=== PATIENT | female | born 1950 | race Caucasian/White ===

== ENCOUNTER → 2017-04-28 | Outpatient (CLI) | payer MEDICARE ==
[~2017-04-28] MED LIST: ACETADRYL 500-1 EACH PO; CHOL10002; Calcium Ascorb500 MG; Fruity C250 MG; HYDR1TAB94 PO; Hair, Skin & N1 EACH; METF500 PO; METF500C PO; MULVITMIND PO; Zestril40 MG PO
[2017-04-29 14:36] LABS: Stool Occult Bld Immuno 1 Negative (NEGATIVE)
== END | disposition home or self-care (01) ==
LOC: LAB EV 01:46
PROVIDERS: Nurse Practitioner
DX: D50.9 Iron deficiency anemia, unspecified (principal); M25.50 Pain in unspecified joint
CPT/HCPCS: G0328

== ENCOUNTER 2017-10-24 07:08 | Day surgery (SDC) | payer MEDICARE, OTHER ==
[~2017-10-24] VITALS: Ht 157.5 cm; Wt 79.5 kg
[~2017-10-24 07:08] MED LIST changes: -CHOL10002; -Calcium Ascorb500 MG; -Fruity C250 MG; -Hair, Skin & N1 EACH
[2017-10-24] MEDS ORDERED: Fruity C250 MG (08:00)
[2017-10-24] MEDS ORDERED: CHOL10002 (08:00)
[2017-10-24] MEDS ORDERED: Calcium Ascorb500 MG (08:00)
[2017-10-24] MEDS ORDERED: Hair, Skin & N1 EACH (08:01)
== END 2017-10-24 10:00 | disposition home or self-care (01) ==
LOC: ORSCSDS 07:08
PROVIDERS: Internal Medicine Gastroenterology
PROC: 0DJD8ZZ Inspection of Lower Intestinal Tract, Via Natural or Artificial Opening Endoscopic (ICD-10-PCS; principal; 2017-10-24 08:45)
DX: D50.9 Iron deficiency anemia, unspecified (principal); Z86.010 Personal history of colon polyps; E11.9 Type 2 diabetes mellitus without complications; I10 Essential (primary) hypertension; E78.5 Hyperlipidemia, unspecified; Z98.84 Bariatric surgery status; Z79.84 Long term (current) use of oral hypoglycemic drugs; Z79.899 Other long term (current) drug therapy
CPT/HCPCS: 82947; J7120

== ENCOUNTER 2017-11-23 10:15 | Day surgery (SDC) | payer MEDICARE, OTHER ==
[~2017-11-23] VITALS: Ht 157.5 cm; Wt 81.7 kg
[~2017-11-23 10:15] MED LIST changes: +CHOL10002; +Calcium Ascorb500 MG; +Fruity C250 MG; +Hair, Skin & N1 EACH
== END 2017-11-23 13:00 | disposition home or self-care (01) ==
LOC: ORSCSDS 10:15
PROVIDERS: Internal Medicine Gastroenterology
PROC: 0DB68ZX Excision of Stomach, Via Natural or Artificial Opening Endoscopic, Diagnostic (ICD-10-PCS; principal; 2017-11-23 11:30)
PROC: 0DBA8ZX Excision of Jejunum, Via Natural or Artificial Opening Endoscopic, Diagnostic (ICD-10-PCS; principal; 2017-11-23 11:30)
DX: D50.9 Iron deficiency anemia, unspecified (principal); E11.9 Type 2 diabetes mellitus without complications; I10 Essential (primary) hypertension; E78.5 Hyperlipidemia, unspecified; Z98.84 Bariatric surgery status; Z79.84 Long term (current) use of oral hypoglycemic drugs; Z79.899 Other long term (current) drug therapy
CPT/HCPCS: 82947; 88305; 88342; J7120

== ENCOUNTER → 2021-08-04 | Outpatient (CLI) | payer MEDICARE, OTHER ==
[~2021-08-04] MED LIST changes: +HYDCHL12.5 PO; +ZESTRIL40 M1 PO; -Zestril40 MG PO
== END | disposition home or self-care (01) ==
LOC: LAB 07:41 → LAB SHORT 07:41 → PLD 07:41
DX: L90.0 Lichen sclerosus et atrophicus (principal)
CPT/HCPCS: 88305

== ENCOUNTER → 2023-01-09 | Outpatient (CLI) | payer MEDICARE, OTHER | END | disposition home or self-care (01) | LOC: LAB SHORT 13:49 → PLD 13:49 | DX: L82.1 Other seborrheic keratosis (principal) | CPT/HCPCS: 88305 ==

== ENCOUNTER 2023-02-16 07:20 | Day surgery (SDC) | payer MEDICARE, OTHER ==
[~2023-02-16] VITALS: Ht 157.5 cm; Wt 73.3 kg
[2023-02-16] MEDS ORDERED: KETO15TC (08:23)
[2023-02-16] MEDS ORDERED: NYSTRIT (08:23)
[2023-02-16] MEDS ORDERED: PIOGLITAZONE (08:23)
[2023-02-16] MEDS ORDERED: JARDIANCE10 MG (08:23)
[2023-02-16] MEDS ORDERED: NIFE10 (08:23)
[2023-02-16] MEDS ORDERED: CLOBETASOL EMOL15 G1 (08:24)
[2023-02-16] MEDS ORDERED: Vitamin C100 M1 (08:25)
[2023-02-16] MEDS ORDERED: Vitamin B Comple1 EA (08:25)
[2023-02-16] MEDS ORDERED: ERGO400 (08:25)
[2023-02-16] MEDS ORDERED: Calcium Acetat667 MG (08:25)
[2023-02-16] MEDS ORDERED: ZINC15 (08:25)
[2023-02-16] MEDS ORDERED: MULTI-VITAMIN1 EAC2 (08:25)
[2023-02-16] MEDS ORDERED: ACET80 (08:26)
[2023-02-16 09:03] VITALS: BP 113/68
== END 2023-02-16 09:12 | disposition home or self-care (01) ==
LOC: ORSCSDS 07:20
PROVIDERS: Internal Medicine Gastroenterology
PROC: 0DJ08ZZ Inspection of Upper Intestinal Tract, Via Natural or Artificial Opening Endoscopic (ICD-10-PCS; principal; 2023-02-16 08:45)
DX: K74.60 Unspecified cirrhosis of liver (principal); Z98.84 Bariatric surgery status; E11.9 Type 2 diabetes mellitus without complications; E78.5 Hyperlipidemia, unspecified; D64.9 Anemia, unspecified; E88.09 Other disorders of plasma-protein metabolism, not elsewhere classified; Z79.899 Other long term (current) drug therapy
CPT/HCPCS: 82947; J2704; J7120

== ENCOUNTER 2023-04-05 11:22 | Day surgery (SDC) | payer MEDICARE, OTHER ==
[~2023-04-05] VITALS: Ht 157.5 cm; Wt 77.2 kg
[~2023-04-05 11:22] MED LIST changes: +ACET80; +CLOBETASOL EMOL15 G1; +Calcium Acetat667 MG; +ERGO400; +JARDIANCE25 MG PO; +KETO15TC; +MULTI-VITAMIN1 EAC2; +NYSTRIT; +PIOGLITAZONE; +PROCARDIA PO; +Vitamin B Comple1 EA; +Vitamin C100 M1; +ZINC15
[2023-04-05] MEDS ORDERED: JARDIANCE25 MG (12:02)
[2023-04-05] MEDS ORDERED: PIOG15 (12:03)
[2023-04-05] MEDS ORDERED: ADALAT CC30 M1 (12:03)
[2023-04-05] MEDS ORDERED: KETO15TC (12:04)
[2023-04-05] MEDS ORDERED: NYSTATIN POWDER (12:04)
[2023-04-05] MEDS ORDERED: NYSTATIN CREAM (12:05)
[2023-04-05] MEDS ORDERED: ERGO400 (12:05)
[2023-04-05] MEDS ORDERED: CLOBETASOL EMOL15 G1 (12:05)
[2023-04-05] MEDS ORDERED: ACET500 (12:06)
--- NOTE | 2023-04-05 12:26 | NUR ---
04/05/23 1226 Nadine Rios PROPARACAINE PLACED IN LEFT EYE AT 1210. PLEDGET PLACED IN LEFT EYE AT 1211. PATIENT TOLERATED WELL.
[2023-04-05 13:23] VITALS: BP 153/91
--- NOTE | 2023-04-05 16:13 | NUR ---
04/05/23 1612 Driss Perez IV REMOVED INTACT. SITE WNL.
== END 2023-04-05 13:51 | disposition home or self-care (01) ==
LOC: ORSCSDS 11:22
PROVIDERS: Ophthalmology
PROC: 08RK3JZ Replacement of Left Lens with Synthetic Substitute, Percutaneous Approach (ICD-10-PCS; principal; 2023-04-05 13:00)
DX: E11.36 Type 2 diabetes mellitus with diabetic cataract (principal); H25.13 Age-related nuclear cataract, bilateral; I10 Essential (primary) hypertension; K74.60 Unspecified cirrhosis of liver; Z79.84 Long term (current) use of oral hypoglycemic drugs; Z79.899 Other long term (current) drug therapy
CPT/HCPCS: 82947; J2001; J2250; J3010; J3301; J7040; V2632

== ENCOUNTER 2023-04-12 11:32 | Day surgery (SDC) | payer MEDICARE, OTHER ==
[~2023-04-12] VITALS: Ht 157.5 cm; Wt 76.7 kg
[~2023-04-12 11:32] MED LIST changes: +ACET500; +ADALAT CC30 M1; +JARDIANCE25 MG; +NYSTATIN CREAM; +NYSTATIN POWDER; +PIOG15
--- NOTE | 2023-04-12 12:00 | NUR ---
04/12/23 1200 Yamini Freedman AT 1158 PLEDGET AT 1156
[2023-04-12 13:25] VITALS: BP 123/67
== END 2023-04-12 13:45 | disposition home or self-care (01) ==
LOC: ORSCSDS 11:32
PROVIDERS: Ophthalmology
PROC: 08RJ3JZ Replacement of Right Lens with Synthetic Substitute, Percutaneous Approach (ICD-10-PCS; principal; 2023-04-12 13:00)
DX: H25.11 Age-related nuclear cataract, right eye (principal); Z96.1 Presence of intraocular lens; I10 Essential (primary) hypertension; K74.60 Unspecified cirrhosis of liver; Z79.84 Long term (current) use of oral hypoglycemic drugs; Z79.899 Other long term (current) drug therapy
CPT/HCPCS: 82947; J2001; J2250; J3010; J3301; J7040; V2632

== ENCOUNTER 2023-11-03 11:03 | Day surgery (SDC) | payer MEDICARE, OTHER ==
[~2023-11-03] VITALS: Ht 152.4 cm; Wt 77.8 kg
[~2023-11-03 11:03] MED LIST changes: +Lactated Ringer's 1,000 ML IV ONE; +propofoL 50 ML IV ONE
[2023-11-03] MEDS ORDERED: CALCIUM 600 +1 EA11 (12:14)
[2023-11-03] MEDS ORDERED: TURMERIC CURCU1 EACH (12:21)
[2023-11-03] MEDS ORDERED: Lactated Ringer's 1,000 ML IV ONE (12:53)
[2023-11-03 14:03] VITALS: BP 126/61
== END 2023-11-03 14:05 | disposition home or self-care (01) ==
LOC: ORSCSDS 11:03
PROVIDERS: Internal Medicine Gastroenterology
PROC: 0DJD8ZZ Inspection of Lower Intestinal Tract, Via Natural or Artificial Opening Endoscopic (ICD-10-PCS; principal; 2023-11-03 12:15)
DX: Z12.11 Encounter for screening for malignant neoplasm of colon (principal); Z86.010 Personal history of colon polyps; I10 Essential (primary) hypertension; E11.9 Type 2 diabetes mellitus without complications; E78.5 Hyperlipidemia, unspecified; Z79.84 Long term (current) use of oral hypoglycemic drugs; Z79.85 Long-term (current) use of injectable non-insulin antidiabetic drugs; Z79.899 Other long term (current) drug therapy
CPT/HCPCS: 82947; J2704; J7120

== ENCOUNTER → 2024-02-27 | Outpatient (CLI) | payer MEDICARE, OTHER ==
[~2024-02-27] MED LIST changes: +CALCIUM 600 +1 EA11; -Lactated Ringer's 1,000 ML IV ONE; +TURMERIC CURCU1 EACH; -propofoL 50 ML IV ONE
[2024-02-28 11:44] LABS: Percent Saturation 24.1 % (15.0-50.0)
== END ==
LOC: LAB 10:32 → LAB SHORT 10:32
PROVIDERS: Internal Medicine Hematology & Oncology
DX: D53.9 Nutritional anemia, unspecified (principal); E61.1 Iron deficiency
CPT/HCPCS: 82607; 82728; 82746; 83540; 83550

== ENCOUNTER 2025-03-18 08:43 | Day surgery (SDC) | payer MEDICARE, OTHER ==
[2025-03-18] VITALS (14 sets, daily range): BP systolic 119–167; BP diastolic 56–70
[~2025-03-18] VITALS: Ht 157.5 cm; Wt 86.3 kg
[~2025-03-18 08:43] MED LIST changes: +ACET500 PO; +Calcium Carbon500 MG PO; +Crestor40 MG PO; +LISI20 PO; +MAGNESIUM PO; +MULVITA PO; +NIFE30ER PO; +NYSTATIN15 GM TOP; +PIOG30 PO; +POTCHL20ER PO; +TURMERIC ROOT5000 GM PO; +VITAMIN D310 MC5 PO; +ZINC CITRATE PO
[2025-03-18] MEDS ORDERED: Chlorhexidine Mouth Care 15 ML UDC MT SCH (09:45)
[2025-03-18] MEDS ORDERED: Ropivacaine 0.5% HCl/Pf 123.125 MG,EPINEPHrine HCL 0.25 MG,Ketorolac Tromethamine 15 MG... INFIL SCH (09:45)
[2025-03-18] MEDS ORDERED: CeFAZolin Sodium 2,000 MG in NS 100 ML IV SCH ×2 (09:45→19:30)
[2025-03-18] MEDS ORDERED: Tranexamic Acid 100 ML IV SCH (09:45)
[2025-03-18] MEDS ORDERED: Metoclopramide HCl 5MG / ML 2ML Vial IV PRN ×2 (10:35→12:05)
[2025-03-18] MEDS ORDERED: Magnesium Hydroxide Conc 10 ML UDC PO PRN (10:35)
[2025-03-18] MEDS ORDERED: HYDROmorphone HCl/Pf 1MG SYR IV PRN ×3 (10:40→12:05)
[2025-03-18] MEDS ORDERED: Ondansetron HCl 2 MG / ML 2ML Vial IV PRN (10:45)
[2025-03-18] MEDS ORDERED: Midazolam HCl 1MG / ML 2ML Vial ONE (11:15)
[2025-03-18] MEDS ORDERED: FLU VACC TS2025(65UP)/MF59C/PF 45 MCG/0.5 ML SYRINGE IM SCH (11:25)
[2025-03-18] MEDS ORDERED: Insulin Regular 100 UNIT/ML 10ML Vial SC SCH (11:30)
[2025-03-18] MEDS ORDERED: FentaNYL Citrate 50 MCG/ML 2 ML Injection ONE (11:42)
[2025-03-18] MEDS ORDERED: Dexamethasone Sod Phos 10 MG/ML 1ML VIAL ONE (11:55)
[2025-03-18] MEDS ORDERED: HYDROmorphone HCl/Pf 1MG SYR ONE (11:55)
[2025-03-18] MEDS ORDERED: Ondansetron HCl 2 MG / ML 2ML Vial ONE (11:55)
[2025-03-18] MEDS ORDERED: FentaNYL Citrate 50 MCG/ML 2 ML Injection IV PRN ×2 (12:05→12:10)
--- NOTE | 2025-03-18 13:55 | NUR ---
POST OP ARRIVAL TO SURGICAL UNIT ORIENTED, & PLEASANT BUT DROWSY. CLOSES EYES & DRIFTS MIDSENTENCE. ASSESSMENT CHARTED. DENIES PAIN. DENIES N/V SO SNACKS & DRINKS GIVEN BUT NOT MUCH INTEREST. CRYOTHERAPY, TEDS, SCDs IN PLACE.
[2025-03-18] MEDS ORDERED: ASPI81CH PO (16:01)
--- NOTE | 2025-03-18 18:00 | NUR ---
UPDATE STILL UNABLE TO LIFT SURGICAL LEG. & UNABLE TO FEEL SURGICAL LEG SCD BUT CAN FEEL OPPOSITE LEG SCD & LIFT ANKLE BUT NOT THIGH.
[2025-03-19 00:05] VITALS: BP 129/65
[2025-03-19 04:52] VITALS: BP 162/66
[2025-03-19 04:57] LABS: BASOPHILS ABSOLUTE AUTO 0.01 K/mm3 (0.00-0.23); BASOPHILS PERCENT AUTO 0 % (0-2); EOSINOPHILS ABSOLUTE AUTO 0.03 K/mm3 (0.00-0.68); EOSINOPHILS PERCENT AUTO 0 % (0-6); Hematocrit 36.1 % (33.0-51.0); Hemoglobin 11.8 g/dL (11.5-16.0); IMMATURE GRAN ABSOLUTE AUTO 0.03 K/mm3 (0.00-0.10); IMMATURE GRAN PERCENT AUTO 0 % (0-1); LYMPHOCYTES ABSOLUTE AUTO 1.60 K/mm3 (0.84-5.20); LYMPHOCYTES PERCENT AUTO 17 % (21-46); MONOCYTES ABSOLUTE AUTO 0.83 K/mm3 (0.16-1.47); MONOCYTES PERCENT AUTO 9 % (4-13); Mean Corpuscular HGB Conc 32.7 g/dL (31.5-36.5); Mean Corpuscular Volume 98 fL (80-100); NEUTROPHILS ABSOLUTE AUTO 6.76 K/mm3 (1.96-9.15); NEUTROPHILS PERCENT AUTO 73 % (41-73); NRBC ABSOLUTE 0.00 K/mm3 (0.00-0.02); NRBC Auto 0.0 /100 WBC (0.0-0.2); Platelet Count 145 K/mm3 (150-400); RDW Coefficient Variation 12.4 % (11.7-14.2); RDW Standard Deviation 44.9 fL (35.1-46.3)
[2025-03-19 05:11] LABS: Anion Gap 10.0 mmol/L (3-11); Blood Urea Nitrogen 20.0 mg/dL (8-24); CO2, Blood 25.0 mmol/L (21-32); Calcium, Blood 8.1 mg/dL (8.5-10.1); Chloride, Blood 106.0 mmol/L (98-108); Creatinine, Blood 0.55 mg/dL (0.40-1.00); Glucose, Blood 109.0 mg/dL (70-99); Potassium, Blood 3.9 mmol/L (3.5-5.5); Sodium, Blood 137.0 mmol/L (136-145)
--- NOTE | 2025-03-19 06:49 | NUR ---
SHIFT SUMMARY PT POD 0 LEFT TKA, PT HAS RESTED T/O THE NIGHT MINIMAL PAIN. PT REPORTS THAT SHE DOES NOT WANT TO TAKE NARCOTICS. PT REFUSED TYLENOL AT MIDNIGHT. SURGICAL SITE WNL. PT UP AND AMBULATING, VOIDING, POST OP VITALS STABLE. PLAN IS FOR DISCHARGE TODAY. PLAN OF CARE REMAINS UNCHANGED. BED IN LOWEST POSITION, CALL LIGHT WITHIN REACH.
[2025-03-19 07:33] VITALS: BP 123/57
[2025-03-19] MEDS ORDERED: Multivitamins 1 Tab PO SCH (09:00)
--- NOTE | 2025-03-19 10:06 | NUR ---
speaking with admin rounding.
[2025-03-19 10:38] VITALS: BP 127/70
--- NOTE | 2025-03-19 10:48 | NUR ---
DISCHARGED PT MET CRITERIA FOR DC. REVIEWED DC INSTRUCTIONS W/PT; VERBALIZED UNDERSTANDING. IV DC'D, CATHETER INTACT. DC PAPERWORK SIGNED AND PT PROVIDED DC FOLDER. PT LEFT UNIT IN WC W/POSSESSIONS, POLAR PACK, AND DC PAPERWORK IN HAND, ACCOMPANIED BY RIDE.
== END 2025-03-19 10:40 | disposition home or self-care (01) ==
LOC: ORSCMMR 08:43 → ORD 10:00 → SURS 13:46 → ORSCMMR 03-19 10:40
PROVIDERS: Orthopaedic Surgery
PROC: 0SRD0JA Replacement of Left Knee Joint with Synthetic Substitute, Uncemented, Open Approach (ICD-10-PCS; principal; 2025-03-18 10:00)
DX: M17.12 Unilateral primary osteoarthritis, left knee (principal); I10 Essential (primary) hypertension; E11.9 Type 2 diabetes mellitus without complications; E66.9 Obesity, unspecified; Z68.34 Body mass index [BMI] 34.0-34.9, adult; Z79.899 Other long term (current) drug therapy; Z79.84 Long term (current) use of oral hypoglycemic drugs; Z98.84 Bariatric surgery status
CPT/HCPCS: 36415; 73560-LT; 80048; 82947; 85025; 97116; 97161; 97530; A9270; C1713; C1776; J0166; J0690; J0735; J1100; J1171; J1885; J2250; J2405; J2704; J2795; J3010; J7120